=== PATIENT | male | born 1950 | race Caucasian/White ===

== ENCOUNTER 2016-03-29 19:19 | Inpatient (IN) | payer MEDICARE ==
[~2016-03-29] VITALS: Ht 180.3 cm; Wt 70.8 kg
[2016-03-29 20:00] VITALS: BP 121/78
[2016-03-29 21:00] VITALS: BP 121/78
[2016-03-29] MEDS ORDERED: ACETAMINOPHEN 325 MG TABLET PO PRN (21:30)
[2016-03-29] MEDS ORDERED: LITH300C4 PO (21:40)
[2016-03-29] MEDS ORDERED: PAXIL PO (21:40)
[2016-03-29] MEDS ORDERED: QUET300T2 PO (21:40)
[2016-03-29] MEDS ORDERED: CLON2TAB PO (21:40)
[2016-03-29] MEDS ORDERED: SYNTHROID PO (21:40)
[2016-03-30] MEDS: LORAZEPAM 0.5 MG TABLET PO PRN (07:51)
[2016-03-30 08:15] LABS: BILIRUBIN,TOTAL 0.4 mg/dL (0.2-1.0); CALCIUM, SERUM 9.1 mg/dL (8.5-10.1); POTASSIUM 4.3 mmol/L (3.5-5.1); TOTAL PROTEIN, SERUM 7.3 g/dL (6.4-8.2)
[2016-03-30 08:19] VITALS: BP 105/71
[2016-03-30] MEDS: clonazePAM 1 MG TABLET PO SCH ×2 (11:48→21:45)
[2016-03-30 11:56] LABS: THYROID STIMULATING HORMONE 5.638 uIU/mL (0.358-3.74)
[2016-03-30] MEDS: PAROXETINE HCL 20 MG TABLET PO SCH (11:56)
[2016-03-30] MEDS: LITHIUM CARBONATE (300 MG CAP) 300 MG CAPSULE PO SCH ×2 (11:56→16:28)
[2016-03-30 16:06] VITALS: BP 115/70
[2016-03-30] MEDS: NEOMY SULF/BACITRAC ZN/POLY 15 GM TUBE TP SCH (16:30)
[2016-03-30 19:59] VITALS: BP 119/72
[2016-03-30] MEDS: QUETIAPINE FUMARATE 100 MG TABLET PO SCH (21:45)
[2016-03-31 08:00] VITALS: BP_SYST 110; BP_DIAS 52; BP_DIAS 71
[2016-03-31] MEDS: NEOMY SULF/BACITRAC ZN/POLY 15 GM TUBE TP SCH ×3 (08:09→17:04)
[2016-03-31] MEDS: clonazePAM 1 MG TABLET PO SCH ×2 (08:09→17:03)
[2016-03-31] MEDS: LITHIUM CARBONATE (300 MG CAP) 300 MG CAPSULE PO SCH ×2 (08:09→17:02)
[2016-03-31] MEDS: LEVOTHYROXINE SODIUM 88 MCG TABLET PO SCH (08:09)
[2016-03-31] MEDS: PAROXETINE HCL 20 MG TABLET PO SCH (08:09)
[2016-03-31 16:00] VITALS: BP 124/60
[2016-03-31 19:54] VITALS: BP 117/75
[2016-03-31] MEDS: QUETIAPINE FUMARATE 100 MG TABLET PO SCH (21:05)
[2016-04-01 08:14] VITALS: BP 101/65
[2016-04-01 08:17] LABS: CHOLESTEROL 165 mg/dL (<200); HDL CHOLESTEROL 37 mg/dL (40-60); LDL 117 mg/dL (0-99); TRIGLYCERIDES 109 mg/dL (30-150)
[2016-04-01] MEDS: clonazePAM 1 MG TABLET PO SCH ×2 (08:25→17:10)
[2016-04-01] MEDS: LEVOTHYROXINE SODIUM 88 MCG TABLET PO SCH (08:25)
[2016-04-01] MEDS: LITHIUM CARBONATE (300 MG CAP) 300 MG CAPSULE PO SCH ×2 (08:25→17:10)
[2016-04-01] MEDS: PAROXETINE HCL 20 MG TABLET PO SCH (08:25)
[2016-04-01] MEDS: NEOMY SULF/BACITRAC ZN/POLY 15 GM TUBE TP SCH ×3 (08:26→17:11)
[2016-04-01 16:06] VITALS: BP 104/73
[2016-04-01 20:20] VITALS: BP 117/74
[2016-04-01] MEDS: QUETIAPINE FUMARATE 100 MG TABLET PO SCH (20:39)
[2016-04-02] MEDS: PAROXETINE HCL 20 MG TABLET PO SCH (08:14)
[2016-04-02] MEDS: LITHIUM CARBONATE (300 MG CAP) 300 MG CAPSULE PO SCH ×2 (08:14→17:06)
[2016-04-02] MEDS: LEVOTHYROXINE SODIUM 88 MCG TABLET PO SCH (08:14)
[2016-04-02] MEDS: clonazePAM 1 MG TABLET PO SCH ×2 (08:14→17:06)
[2016-04-02] MEDS: NEOMY SULF/BACITRAC ZN/POLY 15 GM TUBE TP SCH ×3 (09:00→17:07)
[2016-04-02 09:38] VITALS: BP 91/57
[2016-04-02 15:50] VITALS: BP 111/73
[2016-04-02 20:00] VITALS: BP 121/71
[2016-04-02] MEDS: LORAZEPAM 0.5 MG TABLET PO PRN (20:19)
[2016-04-02] MEDS: ZOLPIDEM TARTRATE 5 MG TABLET PO PRN (21:19)
[2016-04-02] MEDS: QUETIAPINE FUMARATE 100 MG TABLET PO SCH (21:19)
[2016-04-03 06:46] LABS: BASOPHILS % (AUTO) 0.7 % (0.0-2.0); DIFF TOTAL % 100 %; EOSINOPHILS # (AUTO) 0.3 /CMM (0.0-0.7); EOSINOPHILS % (AUTO) 5.9 % (0.0-6.0); HEMATOCRIT 40 % (39-51); HEMOGLOBIN 13.4 g/dL (13.5-17.5); LYMPHOCYTES # (AUTO) 2.2 /CMM (0.8-4.8); LYMPHOCYTES % (AUTO) 38.7 % (20.0-44.0); MEAN CORPUSCULAR HEMOGLOBIN 33 PG (26.0-33.0); MEAN CORPUSCULAR HGB CONC 33 g/dl (31.0-36.0); MEAN CORPUSCULAR VOLUME 99 fL (80-96); MONOCYTES # (AUTO) 0.4 /CMM (0.1-1.30); MONOCYTES % (AUTO) 6.5 % (2.0-12.0); NEUTROPHILS # (AUTO) 2.7 /CMM (1.8-8.9); NEUTROPHILS % (AUTO) 48.2 % (43.0-81.0); PLATELET COUNT (AUTO) 224 /CMM (150-450); RED BLOOD CELL COUNT(AUTO) 4.07 MIL/uL (4.5-6.0); WHITE BLOOD COUNT (AUTO) 5.6 K/uL (4.3-11.0)
[2016-04-03 07:11] LABS: CALCIUM, SERUM 8.8 mg/dL (8.5-10.1); CREATININE 0.9 mg/dL (0.6-1.3); POTASSIUM 4.4 mmol/L (3.5-5.1)
[2016-04-03] MEDS: LEVOTHYROXINE SODIUM 88 MCG TABLET PO SCH (08:07)
[2016-04-03] MEDS: PAROXETINE HCL 20 MG TABLET PO SCH (08:07)
[2016-04-03] MEDS: LITHIUM CARBONATE (300 MG CAP) 300 MG CAPSULE PO SCH ×4 (08:08→16:21)
[2016-04-03] MEDS: clonazePAM 1 MG TABLET PO SCH ×2 (08:08→16:22)
[2016-04-03] MEDS: NEOMY SULF/BACITRAC ZN/POLY 15 GM TUBE TP SCH ×3 (08:09→16:25)
[2016-04-03 08:18] VITALS: BP 138/79
[2016-04-03 16:29] VITALS: BP 119/75
[2016-04-03 20:00] VITALS: BP 116/73
[2016-04-03] MEDS: QUETIAPINE FUMARATE 100 MG TABLET PO SCH (21:11)
[2016-04-04 08:00] VITALS: BP 105/62
[2016-04-04] MEDS: PAROXETINE HCL 20 MG TABLET PO SCH (08:40)
[2016-04-04] MEDS: LITHIUM CARBONATE (300 MG CAP) 300 MG CAPSULE PO SCH ×3 (08:40→17:17)
[2016-04-04] MEDS: clonazePAM 1 MG TABLET PO SCH ×2 (08:40→17:17)
[2016-04-04] MEDS: LEVOTHYROXINE SODIUM 88 MCG TABLET PO SCH (08:40)
[2016-04-04] MEDS: NEOMY SULF/BACITRAC ZN/POLY 15 GM TUBE TP SCH ×3 (08:42→17:20)
[2016-04-04] MEDS: MAGNESIUM HYDROXIDE 30 ML UDC PO PRN (09:28)
[2016-04-04 16:08] VITALS: BP 129/71
[2016-04-04 20:00] VITALS: BP 107/72
[2016-04-04] MEDS: QUETIAPINE FUMARATE 100 MG TABLET PO SCH (21:12)
[2016-04-05] MEDS: LEVOTHYROXINE SODIUM 88 MCG TABLET PO SCH (07:44)
[2016-04-05] MEDS: LITHIUM CARBONATE (300 MG CAP) 300 MG CAPSULE PO SCH ×3 (08:03→17:01)
[2016-04-05] MEDS: PAROXETINE HCL 20 MG TABLET PO SCH (08:03)
[2016-04-05] MEDS: clonazePAM 1 MG TABLET PO SCH ×2 (08:03→17:01)
[2016-04-05] MEDS: NEOMY SULF/BACITRAC ZN/POLY 15 GM TUBE TP SCH ×2 (08:15→17:03)
[2016-04-05 08:23] VITALS: BP 101/74
[2016-04-05 16:04] VITALS: BP 119/62
[2016-04-05 20:00] VITALS: BP 103/54
[2016-04-05] MEDS: QUETIAPINE FUMARATE 100 MG TABLET PO SCH (23:10)
[2016-04-06 08:00] VITALS: BP_SYST 107; BP_SYST 108; BP_DIAS 56; BP_DIAS 76
[2016-04-06] MEDS: LEVOTHYROXINE SODIUM 88 MCG TABLET PO SCH (08:05)
[2016-04-06] MEDS: LITHIUM CARBONATE (300 MG CAP) 300 MG CAPSULE PO SCH ×3 (08:10→17:28)
[2016-04-06] MEDS: PAROXETINE HCL 20 MG TABLET PO SCH (08:10)
[2016-04-06] MEDS: clonazePAM 1 MG TABLET PO SCH ×2 (08:10→17:28)
[2016-04-06] MEDS: MAGNESIUM HYDROXIDE 30 ML UDC PO PRN (08:48)
[2016-04-06] MEDS: NEOMY SULF/BACITRAC ZN/POLY 15 GM TUBE TP SCH ×2 (08:52→17:28)
[2016-04-06 16:43] VITALS: BP 116/66
[2016-04-06 20:20] VITALS: BP 113/72
[2016-04-06] MEDS: QUETIAPINE FUMARATE 100 MG TABLET PO SCH (22:18)
[2016-04-07 08:00] VITALS: BP 105/64
[2016-04-07] MEDS: LITHIUM CARBONATE (300 MG CAP) 300 MG CAPSULE PO SCH ×3 (08:00→16:33)
[2016-04-07] MEDS: clonazePAM 1 MG TABLET PO SCH ×2 (08:00→16:33)
[2016-04-07] MEDS: PAROXETINE HCL 20 MG TABLET PO SCH (08:00)
[2016-04-07] MEDS: LEVOTHYROXINE SODIUM 88 MCG TABLET PO SCH (08:00)
[2016-04-07] MEDS: NEOMY SULF/BACITRAC ZN/POLY 15 GM TUBE TP SCH ×2 (08:11→16:33)
[2016-04-07 16:00] VITALS: BP 115/73
[2016-04-07 20:03] VITALS: BP 114/77
[2016-04-07] MEDS: QUETIAPINE FUMARATE 100 MG TABLET PO SCH (21:23)
[2016-04-08] MEDS: LITHIUM CARBONATE (300 MG CAP) 300 MG CAPSULE PO SCH ×3 (07:56→16:39)
[2016-04-08] MEDS: PAROXETINE HCL 20 MG TABLET PO SCH (07:56)
[2016-04-08] MEDS: clonazePAM 1 MG TABLET PO SCH ×2 (07:56→16:39)
[2016-04-08] MEDS: LEVOTHYROXINE SODIUM 88 MCG TABLET PO SCH (07:56)
[2016-04-08] MEDS: NEOMY SULF/BACITRAC ZN/POLY 15 GM TUBE TP SCH ×2 (07:57→16:39)
[2016-04-08 08:00] VITALS: BP 98/59
[2016-04-08] MEDS: MAGNESIUM HYDROXIDE 30 ML UDC PO PRN (08:42)
[2016-04-08 16:00] VITALS: BP 118/79
[2016-04-08] MEDS: CLOTRIMAZOLE/BETAMETASONE DIPROPIONATE 15 GM TUBE TP SCH (20:00)
[2016-04-08 21:25] VITALS: BP 97/67
[2016-04-08] MEDS: QUETIAPINE FUMARATE 100 MG TABLET PO SCH (21:47)
[2016-04-09] MEDS: LITHIUM CARBONATE (300 MG CAP) 300 MG CAPSULE PO SCH ×3 (08:18→16:58)
[2016-04-09] MEDS: LEVOTHYROXINE SODIUM 88 MCG TABLET PO SCH (08:18)
[2016-04-09] MEDS: PAROXETINE HCL 20 MG TABLET PO SCH (08:18)
[2016-04-09] MEDS: clonazePAM 1 MG TABLET PO SCH ×2 (08:18→16:58)
[2016-04-09] MEDS: CLOTRIMAZOLE/BETAMETASONE DIPROPIONATE 15 GM TUBE TP SCH ×2 (08:20→16:59)
[2016-04-09] MEDS: NEOMY SULF/BACITRAC ZN/POLY 15 GM TUBE TP SCH ×2 (08:21→17:00)
[2016-04-09 08:48] VITALS: BP 126/73
[2016-04-09] MEDS: MAGNESIUM HYDROXIDE 30 ML UDC PO PRN (09:04)
[2016-04-09 16:32] VITALS: BP 107/59
[2016-04-09 20:03] VITALS: BP 125/74
[2016-04-09] MEDS: QUETIAPINE FUMARATE 100 MG TABLET PO SCH (21:25)
[2016-04-09] MEDS: ZOLPIDEM TARTRATE 5 MG TABLET PO PRN (21:25)
[2016-04-10] MEDS: LEVOTHYROXINE SODIUM 88 MCG TABLET PO SCH (07:58)
[2016-04-10] MEDS: LITHIUM CARBONATE (300 MG CAP) 300 MG CAPSULE PO SCH ×3 (08:00→17:08)
[2016-04-10] MEDS: PAROXETINE HCL 20 MG TABLET PO SCH (08:00)
[2016-04-10] MEDS: clonazePAM 1 MG TABLET PO SCH ×2 (08:00→17:08)
[2016-04-10] MEDS: CLOTRIMAZOLE/BETAMETASONE DIPROPIONATE 15 GM TUBE TP SCH ×2 (08:01→17:30)
[2016-04-10] MEDS: NEOMY SULF/BACITRAC ZN/POLY 15 GM TUBE TP SCH ×2 (08:01→17:30)
[2016-04-10 08:42] VITALS: BP 106/63
[2016-04-10] MEDS: MAGNESIUM HYDROXIDE 30 ML UDC PO PRN (08:47)
[2016-04-10] MEDS ORDERED: hydrOXYzine PAMOATE 25 MG CAPSULE PO PRN (10:00)
[2016-04-10] MEDS ORDERED: diphenhydrAMINE HCL 25 MG CAPSULE PO PRN (10:00)
[2016-04-10 16:00] VITALS: BP 111/70
[2016-04-10 20:00] VITALS: BP 117/73
[2016-04-10] MEDS: QUETIAPINE FUMARATE 100 MG TABLET PO SCH (21:01)
[2016-04-10 23:16] VITALS: BP 117/73
[2016-04-11 08:00] VITALS: BP 102/69
[2016-04-11] MEDS: LEVOTHYROXINE SODIUM 88 MCG TABLET PO SCH (08:02)
[2016-04-11] MEDS: clonazePAM 1 MG TABLET PO SCH (08:02)
[2016-04-11] MEDS: PAROXETINE HCL 20 MG TABLET PO SCH (08:03)
[2016-04-11] MEDS: LITHIUM CARBONATE (300 MG CAP) 300 MG CAPSULE PO SCH ×3 (08:03→16:10)
[2016-04-11] MEDS: NEOMY SULF/BACITRAC ZN/POLY 15 GM TUBE TP SCH ×2 (08:07→16:11)
[2016-04-11] MEDS: CLOTRIMAZOLE/BETAMETASONE DIPROPIONATE 15 GM TUBE TP SCH ×2 (08:07→16:11)
[2016-04-11] MEDS: MAG HYDROX/AL HYDROX/SIMETH 30 ML UDC PO PRN (08:47)
[2016-04-11 16:19] VITALS: BP 127/75
[2016-04-11 20:00] VITALS: BP 136/75
[2016-04-11] MEDS: QUETIAPINE FUMARATE 100 MG TABLET PO SCH (21:57)
[2016-04-12] MEDS: LEVOTHYROXINE SODIUM 88 MCG TABLET PO SCH (07:47)
[2016-04-12 08:00] VITALS: BP 117/85
[2016-04-12] MEDS: PAROXETINE HCL 20 MG TABLET PO SCH (08:01)
[2016-04-12] MEDS: LITHIUM CARBONATE (300 MG CAP) 300 MG CAPSULE PO SCH ×3 (08:01→16:11)
[2016-04-12] MEDS: NEOMY SULF/BACITRAC ZN/POLY 15 GM TUBE TP SCH ×2 (08:02→16:12)
[2016-04-12] MEDS: CLOTRIMAZOLE/BETAMETASONE DIPROPIONATE 15 GM TUBE TP SCH ×2 (08:03→16:11)
[2016-04-12] MEDS: MAG HYDROX/AL HYDROX/SIMETH 30 ML UDC PO PRN ×2 (09:39→09:41)
[2016-04-12 16:19] VITALS: BP 136/80
[2016-04-12 20:00] VITALS: BP 135/88
[2016-04-12] MEDS: QUETIAPINE FUMARATE 100 MG TABLET PO SCH (21:04)
[2016-04-13] MEDS: LEVOTHYROXINE SODIUM 88 MCG TABLET PO SCH (08:11)
[2016-04-13] MEDS: PAROXETINE HCL 20 MG TABLET PO SCH (08:11)
[2016-04-13] MEDS: LITHIUM CARBONATE (300 MG CAP) 300 MG CAPSULE PO SCH ×3 (08:11→16:57)
[2016-04-13 08:18] VITALS: BP 107/60
[2016-04-13] MEDS: MAGNESIUM HYDROXIDE 30 ML UDC PO PRN (08:59)
[2016-04-13] MEDS: NEOMY SULF/BACITRAC ZN/POLY 15 GM TUBE TP SCH ×2 (09:31→16:57)
[2016-04-13] MEDS: CLOTRIMAZOLE/BETAMETASONE DIPROPIONATE 15 GM TUBE TP SCH ×2 (09:32→16:57)
[2016-04-13 16:05] VITALS: BP 121/62
[2016-04-13 20:10] VITALS: BP 130/80
[2016-04-13] MEDS: QUETIAPINE FUMARATE 100 MG TABLET PO SCH (21:23)
[2016-04-14] MEDS: LITHIUM CARBONATE (300 MG CAP) 300 MG CAPSULE PO SCH ×3 (07:56→16:51)
[2016-04-14] MEDS: LEVOTHYROXINE SODIUM 88 MCG TABLET PO SCH (07:56)
[2016-04-14] MEDS: PAROXETINE HCL 20 MG TABLET PO SCH (07:57)
[2016-04-14 08:00] VITALS: BP 128/81
[2016-04-14] MEDS: CLOTRIMAZOLE/BETAMETASONE DIPROPIONATE 15 GM TUBE TP SCH ×2 (08:26→16:51)
[2016-04-14] MEDS: NEOMY SULF/BACITRAC ZN/POLY 15 GM TUBE TP SCH ×2 (08:26→16:51)
[2016-04-14] MEDS: MAGNESIUM HYDROXIDE 30 ML UDC PO PRN (09:58)
[2016-04-14 16:00] VITALS: BP 149/82
[2016-04-14 20:00] VITALS: BP 141/89
[2016-04-14] MEDS: QUETIAPINE FUMARATE 100 MG TABLET PO SCH (21:41)
[2016-04-15] MEDS: PAROXETINE HCL 20 MG TABLET PO SCH (08:02)
[2016-04-15] MEDS: LITHIUM CARBONATE (300 MG CAP) 300 MG CAPSULE PO SCH ×3 (08:02→16:18)
[2016-04-15] MEDS: LEVOTHYROXINE SODIUM 88 MCG TABLET PO SCH (08:02)
[2016-04-15 08:55] VITALS: BP 130/91
[2016-04-15] MEDS: CLOTRIMAZOLE/BETAMETASONE DIPROPIONATE 15 GM TUBE TP SCH ×2 (09:00→16:20)
[2016-04-15] MEDS: NEOMY SULF/BACITRAC ZN/POLY 15 GM TUBE TP SCH ×2 (09:00→16:19)
[2016-04-15 16:37] VITALS: BP 116/80
[2016-04-15 20:11] VITALS: BP 137/99
[2016-04-15] MEDS: QUETIAPINE FUMARATE 100 MG TABLET PO SCH (21:13)
[2016-04-16 08:00] VITALS: BP 120/72
[2016-04-16] MEDS: CLOTRIMAZOLE/BETAMETASONE DIPROPIONATE 15 GM TUBE TP SCH (08:20)
[2016-04-16] MEDS: PAROXETINE HCL 20 MG TABLET PO SCH (08:20)
[2016-04-16] MEDS: NEOMY SULF/BACITRAC ZN/POLY 15 GM TUBE TP SCH (08:20)
[2016-04-16] MEDS: LEVOTHYROXINE SODIUM 88 MCG TABLET PO SCH (08:21)
[2016-04-16] MEDS: LITHIUM CARBONATE (300 MG CAP) 300 MG CAPSULE PO SCH ×2 (08:21→12:41)
== END 2016-04-16 14:42 | disposition home or self-care (01) | DRG 885 ==
LOC: GPS 20:41
PROVIDERS: ADMIT Psychiatry & Neurology Psychiatry; ATTEND Family Medicine
DX: F31.5 Bipolar disorder, current episode depressed, severe, with psychotic features (principal); F29 Unspecified psychosis not due to a substance or known physiological condition; E03.9 Hypothyroidism, unspecified; E78.5 Hyperlipidemia, unspecified; I10 Essential (primary) hypertension; Z59.0 Homelessness; F42.9 Obsessive-compulsive disorder, unspecified
CPT/HCPCS: 36415; 80048-TC; 80053-TC; 80061-TC; 84439-TC; 84443-TC; 84481; 85025-TC; 87081-TC